=== PATIENT | male | born 1990 | race Caucasian/White ===

== ENCOUNTER 2022-12-10 11:53 | Emergency (ER) | payer SELFPAY ==
[~2022-12-10] VITALS: Ht 167.6 cm; Wt 70.0 kg
[2022-12-10 12:43] VITALS: BP 138/72
== END 2022-12-10 12:44 ==
LOC: ER 11:53
DX: R06.02 Shortness of breath (principal); Z65.3 Problems related to other legal circumstances
CPT/HCPCS: 99283